=== PATIENT | female | born 1970 | race Caucasian/White ===

== ENCOUNTER 2016-05-14 20:26 | Emergency (ER) | payer OTHER ==
[~2016-05-14] VITALS: Ht 165.1 cm; Wt 109.0 kg
[~2016-05-14 20:26] MED LIST: IBUP800T23 PO; PERC5TAB12 PO; ZOFR4TAB3 SL
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
[2016-05-14 21:18] VITALS: BP 130/82; PULSE 94; RESP 18; TEMP 98.1; O2SAT 97
[2016-05-14] MEDS ORDERED: IBUPROFEN 800 MG TAB PO ONE (21:30)
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
--- NOTE | 2016-05-14 22:46 | RADRPT ---
EXAM DATE/TIME: 05/14/2016 21:49 [facility] COMPARISON: No previous studies available for comparison. INDICATIONS : Pain from fall posteriorly. MEDICAL HISTORY : None. SURGICAL HISTORY : None. ENCOUNTER: Initial ACUITY: 1 day PAIN SCORE: 5/10 LOCATION: Right shoulder. FINDINGS: Multiple view examination of the right shoulder demonstrates no evidence of fracture or dislocation. The glenohumeral and acromioclavicular joints are maintained. There is normal range of motion betwe en internal and external rotation. Bony mineralization is normal. CONCLUSION: No acute disease. Orlando Chen MD on May 14, 2016 at 22:44 Board Certified Radiologist. This report was verified electronically.
== END 2016-05-14 22:57 | disposition home or self-care (01) ==
LOC: NEPK 20:26
DX: S46.911A Strain of unspecified muscle, fascia and tendon at shoulder and upper arm level, right arm, initial encounter (principal); S39.012A Strain of muscle, fascia and tendon of lower back, initial encounter; Z86.69 Personal history of other diseases of the nervous system and sense organs; Z86.59 Personal history of other mental and behavioral disorders; W01.0XXA Fall on same level from slipping, tripping and stumbling without subsequent striking against object, initial encounter; Y93.F9 Activity, other caregiving; Y92.239 Unspecified place in hospital as the place of occurrence of the external cause; Y99.0 Civilian activity done for income or pay
CPT/HCPCS: 73030; 99283